=== PATIENT | male | born 1955 | race Hispanic/Latino ===

== ENCOUNTER 2017-05-17 20:20 | Emergency (ER) | payer SELFPAY ==
[2017-05-17 21:18] LABS: Basophils % (Auto) 0.4 % (0.0-1.8); Eosinophils # (Auto) 0.1 K/mm3 (0.0-0.4); Eosinophils % (Auto) 0.6 % (0.0-4.3); Hematocrit 34.8 % (35.5-45.6); Hemoglobin 12.2 gm/dl (11.8-15.2); Lymphocytes # (Auto) 1.6 K/mm3 (1.2-5.4); Lymphocytes % (Auto) 12.3 % (13.4-35.0); Mean Corpuscular HGB Conc 35 % (32-34); Mean Corpuscular Hemoglobin 30 pg (28-32); Mean Corpuscular Volume 84 fl (84-94); Monocytes # (Auto) 1.2 K/mm3 (0.0-0.8); Monocytes % (Auto) 9.4 % (0.0-7.3); Platelet Count 414 K/mm3 (140-440); Red Blood Count 4.14 M/mm3 (3.65-5.03); Red Cell Distribution Width 12.9 % (13.2-15.2)
[2017-05-17 21:45] LABS: BUN/Creatinine Ratio 21; Blood Urea Nitrogen 19 mg/dL (9-20); Hemolysis Index 3
--- NOTE | 2017-05-17 22:26 | Emergency Department Report ---
ED Male HPI - General Chief complaint: Urogenital-Male Stated complaint: TESTICULAR PAIN Time Seen by Provider: 05/17/17 21:20 Source: patient, EMS Mode of arrival: Ambulatory Limitations: No Limitations - History of Present Illness Initial comments: This is a 61-year-old diabetic hypertensive male who reports that he's been having pain and swelling in the scrotal area for the last 2 days. He has not had these type of symptoms before. He is taking insulin. He cannot recall who his primary care doctor is. He has not had a fever. He denies any problems with urination. MD Complaint: testicle pain, testicle swelling -: Gradual Location: right testicle, left testicle Radiation: none Severity: moderate Quality: dull Consistency: constant Improves with: none Worsens with: none swelling. denies: discharge, rash, urinary retention, blood in urine - Related Data Allergies Allergy/AdvReac Type Severity Reaction Status Date / Time No Known Allergies Allergy Unverified 05/17/17 20:37 ED Review of Systems ROS: Stated complaint: TESTICULAR PAIN Other details as noted in HPI Comment: All other systems reviewed and negative Constitutional: see HPI Eyes: as per HPI ENT: as per HPI Respiratory: see HPI Cardiovascular: as per HPI Endocrine: see HPI Gastrointestinal: as per HPI Genitourinary: as per HPI Musculoskeletal: as per HPI Skin: as per HPI Neurological: as per HPI Psychiatric: as per HPI Hematological/Lymphatic: as per HPI ED Past Medical Hx - Past Medical History Previous Medical History?: Yes Hx Hypertension: Yes Hx Diabetes: Yes - Surgical History Past Surgical History?: Yes Hx Appendectomy: Yes - Social History Smoking Status: Never Smoker Substance Use Type: None ED Physical Exam - General Limitations: No Limitations General appearance: alert, in no apparent distress - Head Head exam: Present: atraumatic, normal inspection - Eye Eye exam: Present: normal appearance, PERRL - ENT ENT exam: Present: normal exam - Neck Neck exam: Present: normal inspection, full ROM - Respiratory Respiratory exam: Present: normal lung sounds bilaterally. Absent: respiratory distress, wheezes, rales, rhonchi, stridor - Cardiovascular Cardiovascular Exam: Present: regular rate, normal rhythm, normal heart sounds - GI/Abdominal GI/Abdominal exam: Present: soft, normal bowel sounds. Absent: distended, tenderness, guarding, rebound, rigid - Rectal Rectal exam: Present: deferred - exam: Present: scrotal swelling (there appears to be gangrenous changes to the scrotal area. There appears to be an abscess with active purulent drainage. ) - Extremities Exam Extremities exam: Present: normal inspection, full ROM - Back Exam Back exam: Present: normal inspection, full ROM - Neurological Exam Neurological exam: Present: alert, oriented X3, CN II-XII intact - Psychiatric Psychiatric exam: Present: normal affect, normal mood - Skin Skin exam: Present: warm, dry, intact, normal color ED Course Vital Signs 05/17/17 05/17/17 05/17/17 20:38 20:50 21:00 Temperature 98.2 F Pulse Rate 89 Respiratory 22 Rate Blood Pressure 152/81 137/74 144/72 Blood Pressure 152/81 [Left] O2 Sat by Pulse 98 100 Oximetry 05/17/17 05/17/17 22:00 23:00 Temperature Pulse Rate Respiratory Rate Blood Pressure 161/80 160/81 Blood Pressure [Left] O2 Sat by Pulse 99 99 Oximetry - Reevaluation(s) Reevaluation #1: 05/17/17 22:25 His white cell count is elevated. His vital signs are normal. It appears that he has gangrenous changes to his scrotal area with an abscess formation with purulent drainage. At this time we will need urology consultation. Ultrasound is pending to ascertain the health of the testes and make sure there is no testicular involvement at this time. CT scan of the pelvis with IV contrast would also be indicated to rule out Santos's gangrene. 05/18/17 01:39 I spoke with the on-call urologist at [facility]. They would not accept the patient. I spoke to the surgeon electrician substation here at the hospital. She is coming in to see the patient. I spoke to the hospitalist as well. The hospitalist asked that the surgeon after evaluation call the hospitalist for consultation for medical management. I have also notified the other ER physician as my shift is ending and I'm transferring care. Patient has been started on vancomycin 1 g IV as well as Zosyn 3.375 mg IV. ED Medical Decision Making - Lab Data Result diagrams: 05/17/17 21:08 05/17/17 21:08 Critical care attestation.: If time is entered above; I have spent that time in minutes in the direct care of this critically ill patient, excluding procedure time. ED Disposition Clinical Impression: Necrotizing fasciitis, Santos gangrene Disposition: DC-[id number] OP ADMIT IP TO THIS HOSP Is pt being admited?: Yes Does the pt Need Aspirin: No Condition: Stable Referrals: JACKIE REYNA MD [Primary Care Provider] - 3-5 Days
--- NOTE | 2017-05-17 23:40 | Ultrasound Report ---
FINAL REPORT PROCEDURE: US TESTICULAR DOPPLER COMP TECHNIQUE: Real-time duran-scale and color flow Doppler sonography in multiple planes of the scrotum, testicles, and epididymes was performed. Velocity spectral waveform analysis Doppler imaging of the arterial inflow and venous outflow of the testicles was performed with image documentation. CPT 50428 and 53653 HISTORY: pain in the testes COMPARISON: No prior studies are available for comparison. FINDINGS: RIGHT TESTICLE: Size: 4.7 x 2.1 x 3.6 cm . Appearance: Normal size and echotexture . Arterial blood flow: Normal spectral waveforms, flow velocities and color flow images.. Venous blood flow: Normal spectral waveforms and color flow images. Right epididymis: Normal size and echotexture . Hydrocele: None . LEFT TESTICLE Size: 4.1 x 2.4 x 3.4 cm . Appearance: Normal size and echotexture . Arterial blood flow: Normal spectral waveforms, flow velocities and color flow images.. Venous blood flow: Normal spectral waveforms and color flow images. Leftepididymis: There is a cyst in the head of the epididymis this measures 2 x 1 millimeter. A small amount of fluid is identified near the head of the epididymis.. Hydrocele: None . IMPRESSION: Both testicles have normal size with appropriate blood flow. There is a small left epididymal cyst this measures up to 2 millimeters.
--- NOTE | 2017-05-17 23:58 | Cat Scan Report ---
FINAL REPORT PROCEDURE: CT PELVIS W CON TECHNIQUE: Computerized axial tomography of the pelvis was performed following the IV injection of iodinated nonionic contrast. Delayed images acquired. DLP 753.11 mGy-cm. HISTORY: Scrotal necrosis, abscess, drainage. Pain. COMPARISON: Ultrasound dated 05/17/2017. TECHNICAL QUALITY: Satisfactory. FINDINGS: Imaged small and large intestine: Moderate stool. Genitourinary system: There is significant bladder distension. Mild enlargement and heterogeneity of the prostate. Small bilateral hydroceles. Moderate skin thickening and induration about the scrotum. Although could be volume averaging consider there may be small foci of air soft tissue indistinctness about the posterior inferior scrotum/perineum. Left greater than right fat filled inguinal hernias. Lymph nodes/mesentery: Normal . Pelvic masses: None . Intraperitoneal fluid: None . Other: Atherosclerosis, particularly of the common femoral vessels. Mild degenerative changes of the visualized lumbosacral spine. IMPRESSION: Moderate skin thickening and induration about the scrotum, particularly the inferior scrotum. Although could be volume averaging there may be small foci of air and soft tissue indistinctness about the posterior inferior scrotum/perineum. Consider cellulitis, cannot exclude developing phlegmon and/or even abscess. Consider correlation clinically if there is concern for more aggressive necrotizing process such as Santos's gangrene. Small bilateral hydroceles. Moderate bladder distension. Moderate stool, consider constipation. Bilateral fat filled inguinal hernias. Atherosclerosis.
[2017-05-18 00:48] LABS: Bilirubin,Urine NEG (Negative); Blood,Urine SM (Negative); Color,Urine Yellow (Yellow); Mucus,Urine FEW /HPF; Protein,Urine >500 mg/dL (Negative); WBC,Urine < 1.0 /HPF (0.0-6.0)
[2017-05-18] MEDS ORDERED: VANCOMYCIN/NS 1 GM/250 ML 1 GM/250 ML BAG IV SCH (02:00)
[2017-05-18] MEDS ORDERED: ZOSYN/NS 3.375GM/50ML 3.375 GM/50 ML BAG IV SCH (02:00)
[2017-05-18] MEDS ORDERED: VANCOMYCIN/0.45 NS 1 GM/250 ML 1 GM/250 ML BAG IV SCH (04:00)
[2017-05-18] MEDS ORDERED: NACL 0.9% 1000 ML 1,000 ML IV SCH (04:11)
--- NOTE | 2017-05-18 04:24 | Consultation ---
History of Present Illness Consult date: 05/18/17 Requesting physician: RENE GUILLEN Chief complaint: scrotal pain - History of present illness History of present illness: 61 yo M with hx of DM, HTN who presents to the hospital with c/o 2-3 days of scrotal pain. He states this is sharp and he noted foul smell coming from the area and this prompted him to come to the hospital. He has been having subjective fevers. He states it has been hard for him to ambulate secondary to the pain. He has been tolerating a diet with n/v but has a decreased appetite. He has been unable to urinate and is constipated. He has never had any symptoms like this before. He felt his diabetes was well controlled. Past History Past Medical History: diabetes, hypertension Past Surgical History: appendectomy Social history: denies: smoking, alcohol abuse Family history: no significant family history Medications and Allergies Allergies Allergy/AdvReac Type Severity Reaction Status Date / Time No Known Allergies Allergy Unverified 05/17/17 20:37 Active Meds: Active Medications Piperacillin Sod/Tazobactam Sod (Zosyn/Ns 3.375gm/50ml) 3.375 gm in 50 mls @ 100 mls/hr IV Q6H LINDA Last Admin: 05/18/17 02:16 Dose: 100 mls/hr Vancomycin HCl (Vancomycin/0.45 Ns 1 Gm/250 Ml) 1 gm in 250 mls @ 250 mls/hr IV Q12H LINDA Sodium Chloride (Nacl 0.9% 1000 Ml) 1,000 mls @ 125 mls/hr IV DIRECT LINDA Review of Systems All systems: negative (10 point ROS performed and negative except for above) Exam Vital Signs Temp Pulse Resp BP Pulse Ox 98.2 F 89 22 152/81 98 05/17/17 20:38 05/17/17 20:38 05/17/17 20:38 05/17/17 20:38 05/17/17 20:38 Narrative exam: Gen: AAOx3. NAD ENT: no scleral icterus or conjunctival pallor CV: S1, S2+ resp: even and unlabored. no audible wheezes Abd: soft, NT, ND : edematous, erythematous scrotum with tenderness on palpation. 5 cm area of necrotic skin of inferior portion of scrotum with foul smelling drainage. No obvious involvement of the perineum. Ext: no c/c/e Results - Labs 05/17/17 21:08 05/17/17 21:08 Abnormal lab results 05/17/17 05/17/17 05/17/17 Range/Units 21:08 21:08 21:54 WBC 12.8 H (4.5-11.0) K/mm3 Hct 34.8 L (35.5-45.6) % MCHC 35 H (32-34) % RDW 12.9 L (13.2-15.2) % Lymph % (Auto) 12.3 L (13.4-35.0) % [place] % (Auto) 9.4 H (0.0-7.3) % [place] # 1.2 H (0.0-0.8) K/mm3 Seg Neutrophils % 77.3 H (40.0-70.0) % Seg Neutrophils # 9.9 H (1.8-7.7) K/mm3 Sodium 133 L (137-145) mmol/L Chloride 93.1 L (98-107) mmol/L Glucose 213 H (75-100) mg/dL POC Glucose 215 H (70-105) Diabetes panel 05/17/17 Range/Units 21:08 Sodium 133 L (137-145) mmol/L Potassium 4.9 (3.6-5.0) mmol/L Chloride 93.1 L (98-107) mmol/L Carbon Dioxide 30 (22-30) mmol/L BUN 19 (9-20) mg/dL Creatinine 0.9 (0.8-1.5) mg/dL Glucose 213 H (75-100) mg/dL Calcium 9.0 (8.4-10.2) mg/dL Calcium panel 05/17/17 Range/Units 21:08 Calcium 9.0 (8.4-10.2) mg/dL Pituitary panel 05/17/17 Range/Units 21:08 Sodium 133 L (137-145) mmol/L Potassium 4.9 (3.6-5.0) mmol/L Chloride 93.1 L (98-107) mmol/L Carbon Dioxide 30 (22-30) mmol/L BUN 19 (9-20) mg/dL Creatinine 0.9 (0.8-1.5) mg/dL Glucose 213 H (75-100) mg/dL Calcium 9.0 (8.4-10.2) mg/dL Adrenal panel 05/17/17 Range/Units 21:08 Sodium 133 L (137-145) mmol/L Potassium 4.9 (3.6-5.0) mmol/L Chloride 93.1 L (98-107) mmol/L Carbon Dioxide 30 (22-30) mmol/L BUN 19 (9-20) mg/dL Creatinine 0.9 (0.8-1.5) mg/dL Glucose 213 H (75-100) mg/dL Calcium 9.0 (8.4-10.2) mg/dL - Imaging CT scan - pelvis: report reviewed (moderate skin thickening and induration about the scrotum, particularly inferior scrotum. May be small foci of air and soft tissue distinctness posterior inferor scrotum/perineum.), image reviewed Additional studies: testicular ultrasound - both testicles have normal size with appropriate blood flow. 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 NPO 2. IVF 3. IV abx 4. needs urgent urology evaluation for surgical debridement of scrotum. Informed by ER that no service station console operator urologist at [facility]. Request surgical evaluation. 5. PRN Pain control 6. accuchecks q6, ISS, strict glucose control I was called by Dr. Guillen at 0130 regarding this patient. Attempted transfer to [place] was refused by service station console operator [place] urologist and no service station console operator urologist at [facility]. Per Dr. Guillen, [place] physician did not feel this to be an emergent issue. Called by Dr. Acuna at 0330 to evaluate patient and assist in transfer if indicated. I spoke with Dr. Gotti (Surgery) at [place] who accepts transfer from ER to ER. Patient will be evaluated by urology at [place].
[2017-05-18 04:46] VITALS: BP 139/81
== END 2017-05-18 05:10 | disposition other institution (70) ==
LOC: ED 20:20
DX: M72.6 Necrotizing fasciitis (principal); N49.3 Fournier gangrene; I10 Essential (primary) hypertension
CPT/HCPCS: 36415; 72193; 80048; 81001; 82962; 85025; 93975; 96365; 96367; 99285; J2543; J3370; J7030; Q9967